=== PATIENT | male | born 2000 | race Caucasian/White ===

== ENCOUNTER 2024-10-11 07:51 | Day surgery (SDC) | payer BC, SELFPAY ==
--- NOTE | 2024-10-10 19:15 | W.ANESPRE ---
General Info Date of Service Date Performed: 10/11/24 Height: 6 ft Weight: 108.862 kg Body Mass Index (BMI): 32.5 Surgical Procedure: Operation Date: 10/11/24 09:10 Proposed Procedure Side Surgeon p Septoplasty Pardeep Bowie MD Meds Allergies and Home Medications Allergies Allergy/AdvReac Type Severity Reaction Status Date / Time red dye Allergy Severe urticaria Verified 10/11/24 08:14 pear AdvReac Unknown Other (See Verified 10/11/24 08:14 Comment) Home Medication ?Medication ?Instructions ?Recorded epinephrine 0.3 mg/0.3 mL 0.3 mg IM ONCE 09/09/24 injection, auto-injector (EpiPen 2-Aldo) omeprazole 20 mg capsule,delayed 20 mg PO BID 09/09/24 release sucralfate 1 gram tablet (Carafate) 1 g PO BID 09/09/24 lorazepam 0.5 mg tablet 0.5 mg PO BID PRN 10/08/24 cephalexin 750 mg capsule 750 mg PO BID 5 days #10 caps 10/11/24 Current Visit Medications: Current Medications Generic Name Dose Route Start Last Admin Trade Name Freq PRN Reason Stop Dose Admin Ringer's Solution 1,000 mls @ 80 mls/hr 10/11/24 06:00 IV 10/11/24 23:59 INFUSION ISABELLE Cefazolin Sodium/Dextrose 2 gm in 50 mls @ 100 mls/hr 10/11/24 06:00 Ancef Duplex IVPB 10/11/24 23:59 PREOP ISABELLE Tranexamic Acid/Sodium Chloride 1,000 mg in 100 mls @ 600 mls/hr 10/11/24 06:00 IVPB 10/11/24 23:59 PREOP ISABELLE IV Miscellaneous Supplies 1 each 10/11/24 06:00 Iv Access IV 10/11/24 23:59 DIRECTED ISABELLE Sodium Chloride 0 ml 10/11/24 06:00 Normal Saline Flush 10 Ml Syr IV 10/11/24 23:59 PRN PRN Sodium Chloride 0 ml 10/11/24 06:00 Normal Saline 10 Ml Vial IJ 10/11/24 23:59 DIRECTED PRN Sterile Water 0 ml 10/11/24 06:00 Water,Injection,Sterile 10 Ml Vial IJ 10/11/24 23:59 DIRECTED PRN PFSH Active Problems Active Problems: Problem Status Onset Code Deviated nasal septum Acute J34.2 Medical History Medical History (Updated 10/08/24 @ 10:32 by Ed Ling) History of palpitations Per states he gets chest pain and palpitations, and is suppose to wear a Holter monitor at some point. Last event was 2 weeks ago. Hx of fracture of foot Heartburn Depression Chronic GERD ADHD Surgical History Surgical History Hx of wisdom tooth extraction Tobacco Smoking/Tobacco Use Status: Never Alcohol Alcohol Intake: never Substance Use Substance use: Never Substance use type: does not use Vital Signs and Lab Results Lab Results Blood Type / Crossmatch: No Data to Display Complete Blood Count: No Data to Display Complete Metabolic Panel: No Data to Display Liver Function Panel: No Data to Display Coagulation Panel: No Data to Display Cardiac Panel: No Data to Display Arterial Blood Gas: No Data to Display Venous Blood Gas: No Data to Display Pancreas Panel: No Data to Display Thyroid Panel: No Data to Display Infectious Disease: No Data to Display Blood Cultures: No Data to Display Toxicology Panel: No Data to Display Anesthesia Assessment and Plan Anesthesia History Personal History: No History of Anesthesia Complications Family History: No Family History of Anesthesia Complications Exercise Tolerance Exercise Tolerance: Metabolic Equivalents>4 Cardiac & Pulmonary Exam Cardiac Exam: Normal S1/S2 Heart Sounds Pulmonary Exam: Clear Bilateral Breath Sounds Implantable Cardiac Device Does patient have a Pacemaker or an ICD?: No Airway Exam Known Difficult Airway: No Mallampati Class: 3 Mouth Opening: Normal (> 3cm) Thyromental Distance: Less than 3 cm Neck Range of Motion: Limited ROM Neck Circumference: Thick Teeth Condition: Normal Dentition Airway Comments: cap on upper front left ASA Classification ASA Score: ASA 2 Emergency Case?: No NPO Status NPO Status: NPO Clears >2 hours, Solids >8 hours Anesthesia Plan Resuscitation Status: Full Code Anesthesia Technique: General Anesthesia Airway Planned: Endotracheal Tube Monitors Used: Standard Monitors Preoperative Comments:: 24 yo male for septoplasty. Sig PMHx: palpitations (likely anxiety related. Does not happen that often), GERD (omeprazole twice daily), depression/adhd, Cervical spine stenosis (recent MRI, does occ get tingling if he moves his neck to quickly), never smoker.
[2024-10-11] VITALS (23 sets, daily range): BP systolic 126–148; BP diastolic 78–92; PULSE 73–85; RESP 11–19; TEMP 36.1–36.9; O2SAT 92–98; BMI 32.5
[2024-10-11] MEDS: Lactated Ringers 1,000 ML 80 ML IV (08:31)
--- NOTE | 2024-10-11 08:42 | W.PM.DSUDISC ---
Date of service: 10/11/24 Discharge Plan Disposition Patient Disposition: Home Condition: Good Discharge Details Reason For Visit: Septoplasty Attending Provider: Pardeep Bowie Primary Care Provider: Gm Flores Home Meds and New Rx's Prescriptions: New cephalexin 750 mg capsule 750 mg PO BID 5 Days Qty: 10 0RF No Action sucralfate [Carafate] 1 gram tablet 1 g PO BID epinephrine [EpiPen 2-Aldo] 0.3 mg/0.3 mL auto-injector 0.3 mg IM ONCE Rx Instructions: as a single dose; may repeat once omeprazole 20 mg capsule,delayed release(DR/EC) 20 mg PO BID lorazepam 0.5 mg tablet 0.5 mg PO BID PRN Patient Comments: TAKE ONE-HALF TABLET BY MOUTH TWICE A DAY FOR 7 DAYS Discharge Instructions Additional Instructions: You may not drive for 72 hours My cell phone number is [phone]. Please call with any questions or concerns. If you feel it is an emergency, and you cannot reach me, please call 911 or proceed to the emergency room Ibuprofen and/or Tylenol for any pain Stand Alone Forms: ENT-Septo Instr. [facility]eb Referrals: Pardeep Bowie MD [ [facility] STAFF PHYSICIAN] - ( as scheduled) Discharge Orders Discharge Orders: Discharge Order (Routine); Ordered 10/11/24 Ordered By: Pardeep Bowie
--- NOTE | 2024-10-11 08:46 | W.PM.OP ---
Operative Note Operative Note PRE-OP DIAGNOSIS: Deviated nasal septum, nasal obstruction POST-OP DIAGNOSIS: same PROCEDURE: Nasal septoplasty SURGEON: Pardeep Bowie ANESTHESIA TYPE: General LMA/ETT Refer to Anesthesia Record ESTIMATED BLOOD LOSS: 15 PATHOLOGY: other (Septal cartilage and bone) COMPLICATIONS: None Patient was transported to: PACU Patient's condition: stable Implants: Harris splints Indications: The patient has a markedly deviated nasal septum with displacement of the quadrangular cartilage into the right nostril resulting greater than 80% obstruction of the right nasal vault. Options were explained to the patient regarding further management. He elected to undergo the above procedure. Consent was filled and signed prior to procedure. All questions were answered prior to the procedure. The fact that we would not be using narcotics afterwards was discussed at length. He was good with this. H&P was reviewed. There have been no changes save that he had had his boot removed. The below was then performed. Findings: Markedly deviated nasal septum with displacement of the quadrangular cartilage and the anterior osseous septum into the right nostril. Cartilaginous spur extending posteriorly along the floor of the nasal cavity, further narrowing the nasal passage posteriorly. Procedure Description: After obtaining an adequate level of general endotracheal anesthesia the patient was positioned in the supine position and prepped and draped in appropriate fashion. 1% lidocaine with 1/200,000 epinephrine was injected to the submucosal planes along the anterior septum bilaterally. Following this cocaine soaked nasal pledgets were placed in the nasal cavity and left for 5 minutes. These were then removed and a left-sided hemitransfixion incision was made. Submucoperichondrial and submucoperiosteal planes were developed along the left side of the nasal septum posteriorly. Once been accomplished with no injuries to the mucosal integrity, the Gueydan knife was used to incise the quadrangular cartilage anteriorly leaving a strong dorsal and columellar strut. Submucoperichondrial and submucoperiosteal planes were then developed along the right side of the nasal septum posteriorly. Following this a swivel knife was used to excise the bulk of the quadrangular cartilage posteriorly and then a combination of Wiley-Noland's and Tima's was used to remove the remainder of the deviated bony nasal septum. A 4 mm chisel was used to remove a small spur from along the floor on the right. Once been accomplished, the Anasco elevator could be passed freely from the anterior nasal cavity to the posterior nasal cavity without significant friction bilaterally. The septum was then examined revealing a nicely medialized septum with no tendency to drift to the right. A small vent hole was made in the mucosa posteriorly on the right to allow any blood to escape. After ensuring adequate hemostasis, the wound was then closed with a simple Monocryl 4.0 suture and then Harris splints were placed in the nasal cavity and secured to the nasal septum with a quilting suture consisting of 2-0 Prolene. Care was taken not to create excess pressure from the Harris splints when the Prolene was placed. The patient was then awakened and extubated by anesthesia and taken the recovery room in stable condition. I was present throughout the entire case. Date of Procedure: 10/11/24
[2024-10-11] MEDS: ceFAZolin 2 GM/50 ML BAG IVPB (09:04)
[2024-10-11] MEDS: TRANEXAMIC ACID/SOD. CHL. 1,000 MG/100 ML BAG 600 MG IVPB (09:08)
[2024-10-11] MEDS: Lidocaine 1% Pres-Free W/EPI 1/200,000 10 ML VIAL (09:18)
[2024-10-11] MEDS: Cocaine Nasal 4% 4 ML BTL (09:18)
[2024-10-11] MEDS: Bacitracin 30 GM TUBE (09:18)
--- NOTE | 2024-10-11 10:05 | SINUS_PTH ---
PATIENT: Cheng You LOC: [facility] U#:[id number] AGE/SX: 24/M ROOM: RE10/11/[address]: Pardeep Bowie MD : 2000 BED: DIS: 10/11/2024 SPEC #: [id number] RECD: 10/11/24 13:00 STATUS: BRAD REClarisa #: [id number] LORENZO: 10/11/24 10:[address]: Pardeep Bowie DEPT: Surgical Specimen RECD BY: Tracee Voss ENTERED: 10/11/24 13:02 SP TYPE: SINUS OTHR DR: Inocencio Flores NP Tissues: 1 - SINUS BIOPSY Procedures: GROSS LEVEL 1 Comments: [id number]
--- NOTE | 2024-10-11 10:24 | W.ANESPOSTOP ---
Postoperative Evaluation Date, Time and Location Date Performed: 10/11/24 Time Performed: 10:24 Patient Location: PACU Vital Signs Most Recent Imported Vital Signs: Most Recent Vital Signs Temp Pulse Resp BP Pulse Ox 36.4 C L 82 16 140/83 96 10/11/24 10:20 10/11/24 10:21 10/11/24 10:21 10/11/24 10:20 10/11/24 10:21 Assessment Mental Status: Arousable with meaningful communication Airway and Respiratory Function: Patent airway with normal (patient baseline) respiratory exam Cardiovascular Function: Hemodynamically Stable Hydration Status: Adequately Hydrated Nausea & Vomiting: No Nausea or Vomiting Pain: Pain is tolerable per patient Peripheral Nerve Block: Patient did not receive a nerve block
== END 2024-10-11 12:45 | disposition home or self-care (01) ==
PROVIDERS: Visit Provider Otolaryngology
PROC: (CPT 30520; principal; 2024-10-11 09:00)
DX: J34.2 Deviated nasal septum (principal); K21.9 Gastro-esophageal reflux disease without esophagitis; F90.9 Attention-deficit hyperactivity disorder, unspecified type; F32.A Depression, unspecified; Z79.899 Other long term (current) drug therapy
CPT/HCPCS: 30520; 88300; 88305; J0131; J0690; J1100; J2004; J2250; J2405; J2704; J3010